=== PATIENT | female | born 1985 | race Caucasian/White ===

== ENCOUNTER 2017-08-05 03:03 | Observation (INO) | payer OTHER ==
[2017-08-05] VITALS (7 sets, daily range): BP systolic 107–150; BP diastolic 65–87; PULSE 60–85; RESP 16–20; TEMP 97.5–99.1; O2SAT 97–100
[~2017-08-05] VITALS: Ht 147.3 cm; Wt 52.0 kg
[~2017-08-05 03:03] MED LIST: GAVICHW PO; PERC7.5T13 PO; Z.0.BCPILL PO
[2017-08-05] MEDS ORDERED: TRI-TAB (05:37)
[2017-08-05] MEDS ORDERED: SODIUM CHLOR 0.9% 1000 ML INJ 1,000 ML IV SCH (05:42)
[2017-08-05] MEDS ORDERED: MORPHINE SULFATE 4 MG/ML INJ IV PUSH ONE (05:45)
[2017-08-05] MEDS ORDERED: ONDANSETRON HCL 4 MG/2 ML VIAL IVP ONE (05:45)
[2017-08-05] MEDS ORDERED: SODIUM CHLORIDE 0.9% FLUSH 10 ML FLUSH IV FLUSH PRN ×2 (05:45→06:45)
[2017-08-05 06:02] LABS: BASOPHIL # 0.2 TH/MM3 (0-0.2); EOSINOPHIL # 0.1 TH/MM3 (0-0.4); EOSINOPHIL % 0.4 % (0.0-4.0); HEMATOCRIT 40.1 % (35.0-46.0); HEMOGLOBIN 13.2 GM/DL (11.6-15.3); LYMPH % 13.3 % (9.0-44.0); LYMPHOCYTE # 2.1 TH/MM3 (1.0-4.8); MEAN CELL VOLUME 83.8 FL (80.0-100.0); MEAN CORPUSCULAR HEMOGLOBIN 27.7 PG (27.0-34.0); MEAN CORPUSCULAR HGB CONC 33.1 % (32.0-36.0); MEAN PLATELET VOLUME 9.2 FL (7.0-11.0); MONO % 3.1 % (0.0-8.0); MONOCYTE # 0.5 TH/MM3 (0-0.9); NEUT % 82.2 % (16.0-70.0); PLATELET COUNT 260 TH/MM3 (150-450); RED BLOOD COUNT 4.78 MIL/MM3 (4.00-5.30); RED CELL DISTRIBUTION WIDTH 13.1 % (11.6-17.2); WHITE BLOOD COUNT 15.8 TH/MM3 (4.0-11.0)
--- NOTE | 2017-08-05 06:05 | PD ---
HPI . Abdominal pain Chief Complaint: Abdominal Pain Time Seen by Provider: 05:36 Travel History International Travel<30 days: No Contact w/Intl Traveler<30days: No Traveled to known affect area: No History of Present Illness HPI 31-year-old female history of gallstones and prior biliary colic diagnosed via ultrasound, presents with having worsening of right upper quadrant pain Which spread to epigastric area currently, he noted as sharp pain that is unremitting and nonradiating. Patient has associated nausea no vomiting. Patient has poor tolerance of p.o. denies any fever chills sweats PFSH Past Medical History Narrative Medical Past medical history reviewed. See HPI Gastrointestinal Disorders: Yes (gallstones) Genitourinary: Yes Tetanus Vaccination: Unknown Influenza Vaccination: No ?: Unknown LMP: 07/28/2017 : 3 Para: 2 : 1 Past Surgical History Section: Yes Social History Alcohol Use: No Tobacco Use: No Allergies-Medications (Allergen,Severity, Reaction): Coded Allergies: erythromycin base (Unverified Allergy, Mild, 08/05/17) Reported Meds & Prescriptions Reported Meds & Active Scripts Active Reported Tri-Sprintec (Norgestimate-Ethinyl Estradiol) 0.18/0.215/0.25 Mg-35 Mcg Tab Narrative Medication Allergies and medications reviewed Review of Systems Except as stated in HPI: all other systems reviewed are Neg General / Constitutional: No: Fever Eyes: No: Visual changes HENT: No: Headaches Cardiovascular: No: Chest Pain or Discomfort Respiratory: No: Shortness of Breath Gastrointestinal: Positive: Nausea, Abdominal Pain, Loss of Appetite, No: Vomiting, Hematemesis, Hematochezia, Constipation, Dysphagia Genitourinary: No: Urgency, Frequency, Dysuria, Hematuria Musculoskeletal: No: Pain Skin: No Rash Neurologic: No: Weakness Psychiatric: No: Depression Endocrine: No: Polydipsia Hematologic/Lymphatic: No: Easy Bruising Physical Exam Narrative GENERAL: Awake and alert oriented 3 no acute distress. Vital signs afebrile normal and stable SKIN: Warm and dry. Color is slightly sallow, no diaphoresis cyanosis or pallor HEAD: Atraumatic. Normocephalic. EYES: Pupils equal and round. No scleral icterus. No injection or drainage. ENT: No nasal bleeding or discharge. Mucous membranes pink and moist. NECK: Trachea midline. No JVD. Supple full range of CARDIOVASCULAR: Regular rate and rhythm. S1-S2 no murmurs RESPIRATORY: No accessory muscle use. Clear to auscultation. Breath sounds equal bilaterally. GASTROINTESTINAL: Abdomen soft, tender epigastrium and right upper quadrant, equivocal to positive Quach sign., nondistended. Hepatic and splenic margins not palpable. MUSCULOSKELETAL: Extremities without clubbing, cyanosis, or edema. No obvious deformities. NEUROLOGICAL: Awake and alert. No obvious cranial nerve deficits. Motor grossly within normal limits. Five out of 5 muscle strength in the arms and legs. Normal speech. PSYCHIATRIC: Appropriate mood and affect; insight and judgment normal. Data Data Last Documented VS Vital Signs Date Time Temp Pulse Resp B/P (MAP) Pulse Ox O2 Delivery O2 Flow Rate FiO2 08/05/17 05:37 98.3 68 18 150/87 (108) 100 Room Air Orders Orders Complete Blood Count With Diff (08/05/17 05:42) Comprehensive Metabolic Panel (08/05/17 05:42) Lipase (08/05/17 05:42) Urinalysis - C+S If Indicated (08/05/17 05:42) Ct Abd/Pel W/O Iv Contrast (08/05/17 05:42) Iv Access Insert/Monitor (08/05/17 05:42) Ecg Monitoring (08/05/17 05:42) Oximetry (08/05/17 05:42) Morphine Inj (Morphine Inj) (08/05/17 05:45) Ondansetron Inj (Zofran Inj) (08/05/17 05:45) Sodium Chlor 0.9% 1000 Ml Inj (Ns 1000 M (08/05/17 05:42) Sodium Chloride 0.9% Flush (Ns Flush) (08/05/17 05:45) Ed Urine Pregnancytest Poc (08/05/17 05:42) Piperacil-Tazo 3.375 Gm Premix (Zosyn 3. (08/05/17 06:15) Us Abdomen Gallbladder (08/05/17 ) Admit Order (Ed Use Only) (08/05/17 06:48) Place In Observation (08/05/17 ) Vital Signs (Adult) Q4H (08/05/17 06:45) Activity Oob With Assistance (08/05/17 06:45) Intake + Output [place].QSHIFT (08/05/17 06:45) Diet Npo (08/05/17 Breakfast) Sodium Chlor 0.9% 1000 Ml Inj (Ns 1000 M (08/05/17 06:45) Sodium Chloride 0.9% Flush (Ns Flush) (08/05/17 06:45) Sodium Chloride 0.9% Flush (Ns Flush) (08/05/17 09:00) Ondansetron Inj (Zofran Inj) (08/05/17 12:00) Comprehensive Metabolic Panel (08/06/17 06:00) Complete Blood Count With Diff (08/06/17 06:00) Naloxone Inj (Narcan Inj) (08/05/17 06:45) Piperacil-Tazo 3.375 Gm Premix (Zosyn 3. (08/05/17 13:00) Morphine Inj (Morphine Inj) (08/05/17 09:00) Labs Laboratory Tests Test 08/05/17 05:50 White Blood Count 15.8 TH/MM3 Red Blood Count 4.78 MIL/MM3 Hemoglobin 13.2 GM/DL Hematocrit 40.1 % Mean Corpuscular Volume 83.8 FL Mean Corpuscular Hemoglobin 27.7 PG Mean Corpuscular Hemoglobin Concent 33.1 % Red Cell Distribution Width 13.1 % Platelet Count 260 TH/MM3 Mean Platelet Volume 9.2 FL Neutrophils (%) (Auto) 82.2 % Lymphocytes (%) (Auto) 13.3 % Monocytes (%) (Auto) 3.1 % Eosinophils (%) (Auto) 0.4 % Basophils (%) (Auto) 1.0 % Neutrophils # (Auto) 13.0 TH/MM3 Lymphocytes # (Auto) 2.1 TH/MM3 Monocytes # (Auto) 0.5 TH/MM3 Eosinophils # (Auto) 0.1 TH/MM3 Basophils # (Auto) 0.2 TH/MM3 CBC Comment DIFF FINAL Differential Comment Urine Color YELLOW Urine Turbidity CLEAR Urine pH 7.5 Urine Specific [place] 1.023 Urine Protein TRACE mg/dL Urine Glucose (UA) NEG mg/dL Urine Ketones NEG mg/dL Urine Occult Blood NEG Urine Nitrite NEG Urine Bilirubin NEG Urine Urobilinogen LESS THAN 2.0 MG/DL Urine Leukocyte Esterase NEG Urine WBC 2 /hpf Urine Squamous Epithelial Cells <1 /hpf Urine Bacteria RARE /hpf Urine Mucus FEW /lpf Microscopic Urinalysis Comment CULT NOT INDICATED Blood Urea Nitrogen 8 MG/DL Creatinine 0.75 MG/DL Random Glucose 99 MG/DL Total Protein 8.8 GM/DL Albumin 3.9 GM/DL Calcium Level 9.4 MG/DL Alkaline Phosphatase 172 U/L Aspartate Amino Transf (AST/SGOT) 23 U/L Alanine Aminotransferase (ALT/SGPT) 34 U/L Total Bilirubin 0.2 MG/DL Sodium Level 139 MEQ/L Potassium Level 3.7 MEQ/L Chloride Level 103 MEQ/L Carbon Dioxide Level 27.9 MEQ/L Anion Gap 8 MEQ/L Estimat Glomerular Filtration Rate 90 ML/MIN Lipase 127 U/L MDM Medical Decision Making Medical Screen Exam Complete: Yes Emergency Medical Condition: Yes Medical Record Reviewed: Yes Differential Diagnosis Biliary colic, cholecystitis, choledocholithiasis, gastritis, duodenitis Narrative Course Patient has elevated white blood cell count. CT reveals thickened wall gallbladder with pericholecystic fluid consistent with possible cholecystitis. Ultrasound ordered for evaluation of common bile duct. Patient admitted to medicine service with pain medications and broad-spectrum antibiotics administered. Diagnosis Primary Impression: Acute cholecystitis Admitting Information Admitting Physician Requests: Admit Fidel Pastor MD Aug 05, 2017 06:05
[2017-08-05 06:07] LABS: BACTERIA, URINE RARE /hpf; BILIRUBIN, URINE NEG (NEG); BLOOD, URINE NEG (NEG); GLUCOSE,URINE NEG (NEG); KETONE, URINE NEG (NEG); MUCUS URINE FEW /lpf (OCC); NITRITE,URINE NEG (NEG); PH, URINE 7.5 (5.0-8.5); SQUAMOUS EPITHELIAL CELL URINE <1 /hpf (0-5); URINE COLOR YELLOW (YELLW/STRAW); URINE LEUKOCYTE ESTERASE NEG (NEG)
[2017-08-05] MEDS ORDERED: PIPERACIL-TAZO 3.375 GM PREMIX 50 ML IV ONE (06:15)
[2017-08-05 06:18] LABS: ALBUMIN 3.9 GM/DL (3.4-5.0); ALT (GPT) 34 U/L (10-53); AST (GOT) 23 U/L (15-37); BICARBONATE 27.9 MEQ/L (21.0-32.0); BLOOD UREA NITROGEN 8 MG/DL (7-18); CALCIUM 9.4 MG/DL (8.5-10.1); CHLORIDE 103 MEQ/L (98-107); CREATININE 0.75 MG/DL (0.50-1.00); GLOMERULAR FILTRATION RATE 90 ML/MIN (>89); GLUCOSE,RANDOM 99 MG/DL (74-106); SODIUM (NA) 139 MEQ/L (136-145)
[2017-08-05 06:21] LABS: ALKALINE PHOSPHATASE 172 U/L (45-117); TOTAL BILIRUBIN ADULT 0.2 MG/DL (0.2-1.0); TOTAL PROTEIN 8.8 GM/DL (6.4-8.2)
--- NOTE | 2017-08-05 06:38 | RADRPT ---
EXAM DATE/TIME: 08/05/2017 06:20 [facility] COMPARISON: No previous studies available for comparison. INDICATIONS : Right side abdominal pain. ORAL CONTRAST: No oral contrast ingested. RADIATION DOSE: 7.24 CTDIvol (mGy) MEDICAL HISTORY : Gallstones. SURGICAL HISTORY : section. ENCOUNTER: Initial ACUITY: 1 day PAIN SCALE: 6/10 LOCATION: Right abdomen. TECHNIQUE: Volumetric scanning of the abdomen and pelvis was performed. Using automated exposure control and ad justment of the mA and/or kV according to patient size, radiation dose was kept as low as reasonably achievable to obtain optimal diagnostic quality images. DICOM format image data is available electro nically for review and comparison. FINDINGS: LOWER LUNGS: The visualized lower lungs are clear. LIVER: Homogeneous density without lesion. There is no dilation of the biliary tree. There are calcified ga llstones. SPLEEN: Normal size without lesion. PANCREAS: Within normal limits. KIDNEYS: Normal in size and shape. There is no mass, stone, or hydronephrosis. ADRENAL GLANDS: Within normal limits. VASCULAR: There is no aortic aneurysm. BOWEL/MESENTERY: The stomach, small bowel, and colon demonstrate no acute abnormality. There is no free intraperitone al air or fluid. Normal appendix. ABDOMINAL WALL: Within normal limits. RETROPERITONEUM: There is no lymphadenopathy. BLADDER: No wall thickening or mass. REPRODUCTIVE: Within normal limits. INGUINAL: There is no lymphadenopathy or hernia. MUSCULOSKELETAL: Within normal limits for patient age. CONCLUSION: 1. No renal calculi or hydronephrosis. 2. Normal appendix. 3. Cholelithiasis. Matthew Daniels MD on August 05, 2017 at 6:34 Board Certified Radiologist. This report was verified electronically.
[2017-08-05] MEDS ORDERED: NALOXONE HCL 0.4 MG/ML AMP IV PUSH PRN ×2 (06:45→11:30)
[2017-08-05] MEDS: SODIUM CHLOR 0.9% 1000 ML INJ 1,000 ML IV SCH ×2 (07:17→20:41)
--- NOTE | 2017-08-05 08:33 | RADRPT ---
EXAM DATE/TIME: 08/05/2017 07:39 [facility] COMPARISON: US ABDOMEN - GALLBLADDER, February 22, 2016, 8:50. INDICATIONS : Evaluate common bile duct. MEDICAL HISTORY : Gallstones. SURGICAL HISTORY : section. ENCOUNTER: Initial ACUITY: 2 days PAIN SCORE: 7/10 LOCATION: Right upper quadrant MEASUREMENTS: LIVER: 16.2 cm length COMMON DUCT: 5 mm RIGHT KIDNEY: 10.4 x 5.5 x 4.4 cm FINDINGS: LIVER: Normal echotexture without focal lesion or ductal dilatation. COMMON DUCT: No intraluminal mass or stone visualized. Stable in size. GALLBLADDER: The gallbladder contains a 14 mm calcified stone which is lodged in the neck of the gallbladder. Ther e is sludge also seen throughout the gallbladder. Gallbladder wall thickening measuring 3 mm with a t race amount of pericholecystic fluid. PANCREAS: The visualized portions are within normal limits. RIGHT KIDNEY: No evidence of hydronephrosis, stone, or mass. CONCLUSION: 1. Sludge and gallstone lodged within the neck of the gallbladder with sonographic findings suggestin g acute cholecystitis. HIDA scan could be performed to evaluate the patency of the cystic duct. 2. Common bile duct is long-term stable in size. Benoit Gilbert Jr., MD on August 05, 2017 at 8:27 Board Certified Radiologist. This report was verified electronically.
[2017-08-05] MEDS: SODIUM CHLORIDE 0.9% FLUSH 10 ML FLUSH IV FLUSH SCH ×2 (09:00→20:42)
[2017-08-05] MEDS ORDERED: MORPHINE SULFATE 2 MG/ML INJ IV PUSH PRN (09:00)
[2017-08-05] MEDS ORDERED: KETOROLAC TROMETHAMINE 30 MG/ML (IVP) VIAL IV PUSH PRN (09:45)
--- NOTE | 2017-08-05 09:47 | HHI.HP ---
[facility] Service [place] [facility] Primary Care Physician No Primary Care Physician Admission Diagnosis Acute Cholecystitis Diagnoses: (1) Cholelithiasis Diagnosis: Principal Chief Complaint: Abdominal pain Travel History International Travel<30 Days: No Contact w/Intl Traveler <30 Da: No Traveled to Known Affected Are: No History of Present Illness Patient is a 31-year-old female who presented to the emergency department with abdominal pain. Patient states that she has a history of gallstones and prior biliary colic diagnosed via ultrasound. Patient is having worsening right upper quadrant pain. Which is referring to the epigastric area. She has some sharp pain that comes and goes has had some nausea with it but no vomiting Patient has poor oral intake. Denies any urinary symptoms. Denies any fever chills or sweats We will consult gastroenterology and surgery and placed in observation Review of Systems Constitutional: COMPLAINS OF: Change in appetite, DENIES: Diaphoretic episodes , Fatigue, Fever, Weight gain, Weight loss, Chills, Dizziness, Night Sweats Endocrine: DENIES: Abnorml menstrual pattern, Heat/cold intolerance, Polydipsia , Polyuria, Polyphagia Eyes: DENIES: Blurred vision, Diplopia, Eye inflammation, Eye pain, Vision loss , Photosensitivity, Double Vision Ears, nose, mouth, throat: DENIES: Tinnitus, Hearing loss, Vertigo, Nasal discharge, Oral lesions, Throat pain, Hoarseness, Ear Pain, Running Nose, Epistaxis, Sinus Pain, Toothache, Odynophagia Respiratory: DENIES: Apneas, Cough, Snoring, Wheezing, Hemoptysis, Sputum production, Shortness of breath Cardiovascular: DENIES: Chest pain, Palpitations, Syncope, Dyspnea on Exertion , PND, Lower Extremity Edema, Orthopnea, Claudication Gastrointestinal: COMPLAINS OF: Abdominal pain, Nausea, DENIES: Black stools, Bloody stools, Constipation, Diarrhea, Vomiting, Difficulty Swallowing, Anorexia Genitourinary: DENIES: Abnormal vaginal bleeding, Dysmenorrhea, Dyspareunia Musculoskeletal: DENIES: Joint pain, Muscle aches, Stiffness, Joint Swelling, Back pain, Neck pain Integumentary: DENIES: Abnormal pigmentation, Pruritus, Rash, Nail changes, Breast masses, Breast skin changes, Nipple discharge Hematologic/lymphatic: DENIES: Bruising, Lymphadenopathy Immunologic/allergic: DENIES: Eczema, Urticaria Neurologic: DENIES: Abnormal gait, Headache, Localized weakness, Paresthesias, Seizures, Speech Problems, Tremor, Poor Balance Psychiatric: DENIES: Anxiety, Confusion, Mood changes, Depression, Hallucinations, Agitation, Suicidal Ideation, Homicidal Ideation, Delusions Except as stated in HPI: all other systems reviewed are Neg Past Family Social History Past Medical History Has had issues with gallbladder before section 2 Past Surgical History section 2 Reported Medications Reported Meds & Active Scripts Active Reported Tri-Sprintec (Norgestimate-Ethinyl Estradiol) 0.18/0.215/0.25 Mg-35 Mcg Tab Allergies: Coded Allergies: erythromycin base (Unverified Allergy, Mild, 08/05/17) Active Ordered Medications Current Medications Morphine Sulfate (Morphine Inj) 2 mg ONCE ONCE IV PUSH Last administered on at 06:03; Start 08/05/17 at 05:45; Stop 08/05/17 at 05:46; Status DC Ondansetron HCl (Zofran Inj) 4 mg ONCE ONCE IVP Last administered on at 06:02; Start 08/05/17 at 05:45; Stop 08/05/17 at 05:46; Status DC Sodium Chloride 1,000 ml @ 1,000 mls/hr Q1H IV Last administered on 08/05/17at 05:42; Start 08/05/17 at 05:42; Stop 08/05/17 at 06:41; Status DC Sodium Chloride (NS Flush) 2 ml UNSCH PRN IV FLUSH FLUSH AFTER USING IV ACCESS ; Start 08/05/17 at 05:45 Piperacillin Sod/ Tazobactam Sod 50 ml @ 100 mls/hr ONCE ONCE IV Last administered on 08/05/17at 06:41; Start 08/05/17 at 06:15; Stop 08/05/17 at 06:44 ; Status DC Sodium Chloride 1,000 ml @ 100 mls/hr Q10H IV Last administered on 08/05/17at 07:17; Start 08/05/17 at 06:45 Sodium Chloride (NS Flush) 2 ml UNSCH PRN IV FLUSH FLUSH AFTER USING IV ACCESS ; Start 08/05/17 at 06:45 Sodium Chloride (NS Flush) 2 ml BID IV FLUSH ; Start 08/05/17 at 09:00 Ondansetron HCl (Zofran Inj) 4 mg Q6H PRN IVP NAUSEA OR VOMITING; Start at 12:00 Naloxone HCl (Narcan Inj) 0.4 mg UNSCH PRN IV PUSH SEE LABEL COMMENTS; Start at 06:45 Piperacillin Sod/ Tazobactam Sod 50 ml @ 100 mls/hr Q6H IV ; Start 08/05/17 at 13:00 Morphine Sulfate (Morphine Inj) 2 mg Q3H PRN IV PUSH pain > 4; Start 08/05/17 at 09:00 Family History Father has history of heart disease. Mother has history of hypertension Social History Works at [employer] in their [employer] Denies any alcohol denies any tobacco denies any illicit Physical Exam Vital Signs Vital Signs Date Time Temp Pulse Resp B/P (MAP) Pulse Ox O2 Delivery O2 Flow Rate FiO2 08/05/17 07:17 80 16 120/69 (86) 99 Room Air 08/05/17 05:37 98.3 68 18 150/87 (108) 100 Room Air 08/05/17 03:12 98.6 85 16 107/66 (80) 100 Physical Exam GENERAL: This is a well-nourished, well-developed patient, in no apparent distress. SKIN: No rashes, ecchymoses or lesions. Cool and dry. HEAD: Atraumatic. Normocephalic. No temporal or scalp tenderness. EYES: Pupils equal round and reactive. Extraocular motions intact. No scleral icterus. No injection or drainage. ENT: Nose without bleeding, purulent drainage or septal hematoma. Throat without erythema, tonsillar hypertrophy or exudate. Uvula midline. Airway patent. NECK: Trachea midline. No JVD or lymphadenopathy. Supple, nontender, no meningeal signs. CARDIOVASCULAR: Regular rate and rhythm without murmurs, gallops, or rubs. S1- S2 no S3 or S4 RESPIRATORY: Clear to auscultation. Breath sounds equal bilaterally. No wheezes , rales, or rhonchi. GASTROINTESTINAL: Abdomen nondistended. No hepato-splenomegaly, or palpable masses. No guarding. Some tenderness in the right upper quadrant right side of the abdomen MUSCULOSKELETAL: Extremities without clubbing, cyanosis, or edema. No joint tenderness, effusion, or edema noted. No calf tenderness. Negative Homans sign bilaterally. NEUROLOGICAL: Awake and alert. Cranial nerves II through XII intact. Motor and sensory grossly within normal limits. Five out of 5 muscle strength in all muscle groups. Normal speech. Insight and judgment is good Mood and behaviors appropriate Laboratory Laboratory Tests Test 08/05/17 05:50 White Blood Count 15.8 Red Blood Count 4.78 Hemoglobin 13.2 Hematocrit 40.1 Mean Corpuscular Volume 83.8 Mean Corpuscular Hemoglobin 27.7 Mean Corpuscular Hemoglobin Concent 33.1 Red Cell Distribution Width 13.1 Platelet Count 260 Mean Platelet Volume 9.2 Neutrophils (%) (Auto) 82.2 Lymphocytes (%) (Auto) 13.3 Monocytes (%) (Auto) 3.1 Eosinophils (%) (Auto) 0.4 Basophils (%) (Auto) 1.0 Neutrophils # (Auto) 13.0 Lymphocytes # (Auto) 2.1 Monocytes # (Auto) 0.5 Eosinophils # (Auto) 0.1 Basophils # (Auto) 0.2 CBC Comment DIFF FINAL Differential Comment Urine Color YELLOW Urine Turbidity CLEAR Urine pH 7.5 Urine Specific [place] 1.023 Urine Protein TRACE Urine Glucose (UA) NEG Urine Ketones NEG Urine Occult Blood NEG Urine Nitrite NEG Urine Bilirubin NEG Urine Urobilinogen LESS THAN 2.0 Urine Leukocyte Esterase NEG Urine WBC 2 Urine Squamous Epithelial Cells <1 Urine Bacteria RARE Urine Mucus FEW Microscopic Urinalysis Comment CULT NOT INDICATED Blood Urea Nitrogen 8 Creatinine 0.75 Random Glucose 99 Total Protein 8.8 Albumin 3.9 Calcium Level 9.4 Alkaline Phosphatase 172 Aspartate Amino Transf (AST/SGOT) 23 Alanine Aminotransferase (ALT/SGPT) 34 Total Bilirubin 0.2 Sodium Level 139 Potassium Level 3.7 Chloride Level 103 Carbon Dioxide Level 27.9 Anion Gap 8 Estimat Glomerular Filtration Rate 90 Lipase 127 Result Diagram: 08/05/1750 08/05/17 0550 Imaging Last Impressions Abdomen/Pelvis CT 08/05/17 0542 Signed Impressions: Service Date/Time: Saturday, August 05, 2017 06:20 - CONCLUSION: 1. No renal calculi or hydronephrosis. 2. Normal appendix. 3. Cholelithiasis. Matthew Daniels MD Gall Bladder Ultrasound 08/05/17 0000 Signed Impressions: Service Date/Time: Saturday, August 05, 2017 07:39 - CONCLUSION: 1. Sludge and gallstone lodged within the neck of the gallbladder with sonographic findings suggesting acute cholecystitis. HIDA scan could be performed to evaluate the patency of the cystic duct. 2. Common bile duct is long-term stable in size. MD Deloris Sinha Jr. VTE Risk Assessment Caprini VTE Risk Assessment: No/Low Risk (score <= 1) Caprini Risk Assessment Model Point Value = 1 Point Value = 2 Point Value = 3 Point Value = 5 Age 41-60 Minor surgery BMI > 25 kg/m2 Swollen legs Varicose veins or History of unexplained or recurrent spontaneous Oral contraceptives or hormone replacement Sepsis (< 1 month) Serious lung disease, including pneumonia (< 1 month) Abnormal pulmonary function Acute myocardial infarction Congestive heart failure (< 1 month) History of inflammatory bowel disease Medical patient at bed rest Age 61-74 Arthroscopic surgery Major open surgery (> 45 min) Laparoscopic surgery (> 45 min) Malignancy Confined to bed (> 72 hours) Immobilizing plaster cast Central venous access Age >= 75 History of VTE Family history of VTE Factor V Leiden Prothrombin 25239H Lupus anticoagulant Anticardiolipin antibodies Elevated serum homocysteine Heparin-induced thrombocytopenia Other congenital or acquired thrombophilia Stroke (< 1 month) Elective arthroplasty Hip, pelvis, or leg fracture Acute spinal cord injury (< 1 month) Prophylaxis Regimen Total Risk Factor Score Risk Level Prophylaxis Regimen 0-1 Low Early ambulation 2 Moderate Order ONE of the following: *Sequential Compression Device (SCD) *Heparin 5000 units SQ BID 3-4 Higher Order ONE of the following medications: *Heparin 5000 units SQ TID *Enoxaparin/Lovenox 40 mg SQ daily (WT < 150 kg, CrCl > 30 mL/min) *Enoxaparin/Lovenox 30 mg SQ daily (WT < 150 kg, CrCl > 10-29 mL/min) *Enoxaparin/Lovenox 30 mg SQ BID (WT < 150 kg, CrCl > 30 mL/min) AND/OR *Sequential Compression Device (SCD) 5 or more Highest Order ONE of the following medications: *Heparin 5000 units SQ TID (Preferred with Epidurals) *Enoxaparin/Lovenox 40 mg SQ daily (WT < 150 kg, CrCl > 30 mL/min) *Enoxaparin/Lovenox 30 mg SQ daily (WT < 150 kg, CrCl > 10-29 mL/min) *Enoxaparin/Lovenox 30 mg SQ BID (WT < 150 kg, CrCl > 30 mL/min) AND *Sequential Compression Device (SCD) Assessment and Plan Assessment and Plan Abdominal pain with possible acute cholecystitis will consult surgery as well as gastroenterology We will get a HIDA scan as well as a MRCP Pain control with nonnarcotics due to need for HIDA scan Suspected cholecystitis pain control discussed with gastroenterology Leukocytosis continue on antibiotics and pain control and fluids keep n.p.o. at this time Continue on DVT prophylaxis with SCDs at this time GI prophylaxis with Pepcid Code Status full code Discussed Condition With [facility] AND RN AND PT Reza Warren DO Aug 05, 2017 09:47
--- NOTE | 2017-08-05 09:55 | PD.CONS ---
HPI History of Present Illness This is a 31 year old F with no significant PMH, states she has had issues with her gallbladder for the past year. Was previously advised to have cholecystectomy, however timing was bad so she did not have it done. Pt presented to the ER early this morning with complaints of RUQ abdominal pain radiating to her epigastric area that began suddenly at 10pm last night. Described pain as dull and achy. States pain is worse with larger meals. Associated nausea, denies emesis. Reports occasional ETOH. Denies smoking and illicit drug use. Work up so far includes Gallbladder US and CT abdomen and pelvis. HIDA scan ordered per Dr. Harris. (Steffanie Alcaraz) [facility] Past Medical History Denies Past Surgical History C- section (Steffanie Alcaraz) Coded Allergies: erythromycin base (Unverified Allergy, Mild, 08/05/17) Social History Occasional ETOH Denies smoking Denies illicit drugs (Steffanie Alcaraz) Review of Systems Gastrointestinal: COMPLAINS OF: Abdominal pain, Nausea, DENIES: Black stools, Bloody stools, Constipation, Diarrhea, Vomiting, Difficulty Swallowing, Anorexia , Odynophagia, Swelling of Abdomen, Heartburn, Hematemesis (Steffanie Alcaraz ) GI Exam Vitals I&O Vital Signs Date Time Temp Pulse Resp B/P (MAP) Pulse Ox O2 Delivery O2 Flow Rate FiO2 08/05/17 07:17 80 16 120/69 (86) 99 Room Air 08/05/17 05:37 98.3 68 18 150/87 (108) 100 Room Air 08/05/17 03:12 98.6 85 16 107/66 (80) 100 I/O 08/04/17 08/04/17 08/04/17 08/05/17 08/05/17 08/05/17 07:00 15:00 23:00 07:00 15:00 23:00 Intake Total 1100 ml Balance 1100 ml Intake IV Total 1100 ml Imaging Last Impressions Abdomen/Pelvis CT 08/05/17 0542 Signed Impressions: Service Date/Time: Saturday, August 05, 2017 06:20 - CONCLUSION: 1. No renal calculi or hydronephrosis. 2. Normal appendix. 3. Cholelithiasis. Matthew Daniels MD Gall Bladder Ultrasound 08/05/17 0000 Signed Impressions: Service Date/Time: Saturday, August 05, 2017 07:39 - CONCLUSION: 1. Sludge and gallstone lodged within the neck of the gallbladder with sonographic findings suggesting acute cholecystitis. HIDA scan could be performed to evaluate the patency of the cystic duct. 2. Common bile duct is long-term stable in size. Benoit Gilbert Jr., MD Laboratory Test 08/05/17 05:50 White Blood Count 15.8 TH/MM3 Red Blood Count 4.78 MIL/MM3 Hemoglobin 13.2 GM/DL Hematocrit 40.1 % Mean Corpuscular Volume 83.8 FL Mean Corpuscular Hemoglobin 27.7 PG Mean Corpuscular Hemoglobin Concent 33.1 % Red Cell Distribution Width 13.1 % Platelet Count 260 TH/MM3 Mean Platelet Volume 9.2 FL Neutrophils (%) (Auto) 82.2 % Lymphocytes (%) (Auto) 13.3 % Monocytes (%) (Auto) 3.1 % Eosinophils (%) (Auto) 0.4 % Basophils (%) (Auto) 1.0 % Neutrophils # (Auto) 13.0 TH/MM3 Lymphocytes # (Auto) 2.1 TH/MM3 Monocytes # (Auto) 0.5 TH/MM3 Eosinophils # (Auto) 0.1 TH/MM3 Basophils # (Auto) 0.2 TH/MM3 CBC Comment DIFF FINAL Differential Comment Urine Color YELLOW Urine Turbidity CLEAR Urine pH 7.5 Urine Specific [place] 1.023 Urine Protein TRACE mg/dL Urine Glucose (UA) NEG mg/dL Urine Ketones NEG mg/dL Urine Occult Blood NEG Urine Nitrite NEG Urine Bilirubin NEG Urine Urobilinogen LESS THAN 2.0 MG/DL Urine Leukocyte Esterase NEG Urine WBC 2 /hpf Urine Squamous Epithelial Cells <1 /hpf Urine Bacteria RARE /hpf Urine Mucus FEW /lpf Microscopic Urinalysis Comment CULT NOT INDICATED Blood Urea Nitrogen 8 MG/DL Creatinine 0.75 MG/DL Random Glucose 99 MG/DL Total Protein 8.8 GM/DL Albumin 3.9 GM/DL Calcium Level 9.4 MG/DL Alkaline Phosphatase 172 U/L Aspartate Amino Transf (AST/SGOT) 23 U/L Alanine Aminotransferase (ALT/SGPT) 34 U/L Total Bilirubin 0.2 MG/DL Sodium Level 139 MEQ/L Potassium Level 3.7 MEQ/L Chloride Level 103 MEQ/L Carbon Dioxide Level 27.9 MEQ/L Anion Gap 8 MEQ/L Estimat Glomerular Filtration Rate 90 ML/MIN Lipase 127 U/L Physical Examination HEENT: Normocephalic; atraumatic CHEST: Even/unlabored CARDIAC: RRR ABDOMEN: Soft, nondistended, (+) Quach sign;bowel sounds active EXTREMITIES: No clubbing, cyanosis, or edema. SKIN: Normal; no rash; no jaundice. MANAGER UROLOGY: No focal deficits; alert and oriented times three. (Steffanie Alcaraz) Assessment and Plan Plan Assessment: - Acute cholecystitis- US gallbladder --> Sludge and gallstone lodged within the neck of the gallbladder with sonographic findings suggesting acute cholecystitis. Common bile duct is long-term stable in size. CT abdomen and pelvis W/O IV contrast --> Cholelithiasis. No dilation of the biliary tree. (+) Quach sign. Pt complaining of RUQ/epigastric pain that began suddenly at 10pm last night. Leukocytosis AST-23 ALT-34 Alk phos-172 T bili-0.2 Occasional ETOH. Plan: HIDA scan ordered per attending GS consulted Unlikely CBD stone given normal LFTs, can do MRCP at later time if warranted Monitor LFTs Further recommendations based on findings of above and clinical course Pt has been seen and examined by myself and Dr. Cook and this note is written on his behalf (Steffanie Alcaraz) Physician Comments Patient seen and examined Agree with above Continue with current supportive care Monitor labs Further recommendations as per the general surgery service Not much to add from a GI perspective we will sign off (Michael Cook MD) Steffanie Alcaraz Aug 05, 2017 09:55 Michael Cook MD Aug 05, 2017 21:47
[2017-08-05] MEDS ORDERED: LACTULOSE SYRUP 20 GM/30 ML CUP PO PRN (11:30)
[2017-08-05] MEDS ORDERED: MAGNESIUM HYDROXIDE SUSP 30 ML CUP PO PRN (11:30)
[2017-08-05] MEDS ORDERED: SENNOSIDES 8.6 MG TAB PO PRN (11:30)
[2017-08-05] MEDS ORDERED: BISACODYL 10 MG SUPP RECTAL PRN (11:30)
[2017-08-05] MEDS ORDERED: GLYCOPYRROLATE 1 MG/5 ML SYRINGE IV PUSH ONE (12:00)
[2017-08-05] MEDS ORDERED: PROPOFOL 200 MG/20 ML AMP IV ONE (12:00)
[2017-08-05] MEDS ORDERED: KETOROLAC TROMETHAMINE 30 MG/ML (IVP) VIAL IV PUSH ONE (12:00)
[2017-08-05] MEDS ORDERED: LIDOCAINE HCL 1% PF 5 ML SYRINGE OTHER ONE (12:00)
[2017-08-05] MEDS ORDERED: ONDANSETRON HCL 4 MG/2 ML VIAL IV ONE (12:00)
[2017-08-05] MEDS ORDERED: DEXAMETHASONE SOD PHOS 4 MG/ML VIAL IV ONE (12:00)
[2017-08-05] MEDS ORDERED: NEOSTIGMINE 5 MG/5 ML SYRINGE IV PUSH ONE (12:00)
[2017-08-05] MEDS ORDERED: LACTATED RINGER'S 1000 ML INJ 1,000 ML IV ONE (12:00)
[2017-08-05] MEDS ORDERED: ROCURONIUM INJ 50 MG/5 ML SYRINGE IV PUSH ONE (12:00)
[2017-08-05] MEDS ORDERED: ONDANSETRON HCL 4 MG/2 ML VIAL IVP PRN (12:00)
--- NOTE | 2017-08-05 12:43 | RADRPT ---
EXAM DATE/TIME: 08/05/2017 10:38 This report includes an Addendum and supersedes previous reports for this exam. [facility] COMPARISON: US ABDOMEN - GALLBLADDER, August 05, 2017, 7:39. INDICATIONS : Abdominal pain with nausea. DOSE: 4.1 mCi Tc99m Mebrofenin IV MEDICAL HISTORY : Gallstones. SURGICAL HISTORY : section. ENCOUNTER: Initial ACUITY: 1 day PAIN SCALE: 8/10 LOCATION: Right upper quadrant TECHNIQUE: Following the intravenous administration of radiotracer, dynamic sequential images wer e performed with continuous acquisition. FINDINGS: HEPATIC KINETICS: There is prompt uptake of radiotracer in the liver. No focal defects are seen. There is normal rate of washout from the hepatic parenchyma. BILIARY CLEARANCE: Activity is first seen in the extrahepatic biliary system at 15 minutes. Ther e is normal excretion into the small bowel. GALLBLADDER: There is nonvisualization of the gallbladder at 90 minutes indicating cystic duct ob struction/acute cholecystitis. Common bile duct kinetics are normal and there is no evidence of bilia ry obstruction. BILIARY ENTRIC REFLUX: None observed. CONCLUSION: Non-visualization of the gallbladder at 90 minutes indicating cystic duct obstruction /acute cholecystitis. Clinical correlation is recommended Bryan Fiore MD on August 05, 2017 at 12:39 Board Certified Radiologist. This report was verified electronically. ADDENDUM: COMPARISON: CT ABDOMEN & PELVIS W/O CONTRAST, August 05, 2017, 6:20. Delayed 22 hour scanning does reveal gallbladder activity. The appearance would be consistent with po ssible chronic cholecystitis, however not acute cholecystitis. Juan De Dios MD on August 06, 2017 at 10:27 Board Certified Radiologist. This report was verified electronically.
[2017-08-05] MEDS: FAMOTIDINE 20 MG/2 ML VIAL IV PUSH SCH ×2 (12:53→21:36)
[2017-08-05] MEDS: PIPERACIL-TAZO 3.375 GM PREMIX 50 ML IV SCH ×2 (13:37→20:40)
[2017-08-05] MEDS ORDERED: BUPIVACAINE/EPINEPHRINE 0.25% 50 ML VIAL ONE (13:46)
[2017-08-05] MEDS ORDERED: MIDAZOLAM HCL 2 MG/2 ML VIAL ONE (13:52)
[2017-08-05] MEDS ORDERED: fentaNYL CITRATE 250 MCG/5 ML AMP ONE (13:52)
[2017-08-05] MEDS ORDERED: ACETAMINOPHEN 1000 MG/100 ML 100 ML IV ONE (13:52)
--- NOTE | 2017-08-05 15:36 | HHI.PR ---
Immediate Post Op Note Procedure Date: Aug 05, 2017 Pre Op Diagnosis: acute samuel with gb stones Post Op Diagnosis: same Surgeon: James Dowell MD Dairy Farmer(s): see or sheet Procedure: lap samuel Findings: very inflamed gb, stones Complications: none Specimen(s) removed: gallbladder Estimated blood loss: 5cc Anesthesia: General Patient to: PACU Patient Condition: Good James Dowell MD Aug 05, 2017 15:36
[2017-08-05] MEDS ORDERED: DO NOT ADM ANY ANTICOAGULANT DRUGS PRN (15:55)
--- NOTE | 2017-08-05 17:31 | MP ---
cc: James Dowell MD, Lars S MD DATE OF OPERATION: 08/05/2017 PREOPERATIVE DIAGNOSIS: Acute cholecystitis with cholelithiasis. POSTOPERATIVE DIAGNOSIS: Acute cholecystitis with cholelithiasis. PROCEDURE PERFORMED: Laparoscopic cholecystectomy. SURGEON: James Dowell MD NURSE REVIEWER: See OR sheet. ANESTHESIA: GETA. IV FLUIDS: See anesthesia sheet. ESTIMATED BLOOD LOSS: 5 mL. DRAINS: None. COMPLICATIONS: None. WOUND CLASSIFICATION: Contaminated. SPECIMENS: Gallbladder. INDICATIONS: The patient is a 31-year-old female who has a history of cholelithiasis. She came with acute onset of pain since 10:00 p.m., right upper quadrant, and CT and ultrasound findings of acute cholecystitis with cholelithiasis. Therefore, decision was made for operative intervention. DETAILS OF PROCEDURE: The patient was taken to the operative suite, placed in supine position. She was prepped and draped in usual sterile fashion after induction of general endotracheal anesthesia. Brief timeout done stating correct patient, procedure, and surgical site. We were all in agreement with this. Attention was directed to the umbilicus where a local anesthetic was injected. A stab che incision was made with an 11 blade. The Veress needle was placed. Intraabdominal placement confirmed with saline drop test. The abdomen insufflated to 15 mm pneumoperitoneum. The 5 mm Visiport Optiview was used to enter the abdomen safely. On cursory inspection, no evidence of injury. The patient was placed in reverse Trendelenburg, airplaned to the left and 3 other ports were placed including 12 mm epigastric, two 5 mm right subcostals. The fundus was attempted to be grasped, but it was very indurated and distended, therefore, an endo-needle was used to aspirate. Thick bile was removed, approximately 60 mL The gallbladder fundus was grasped and retracted cephalad. Infundibulum was identified, dissected out of the cystic duct and cystic artery. There were a couple of adhesions that were attached to the gallbladder that were taken down via a hook electrocautery. Gallbladder artery was dissected out with [place] and electro Bovie cautery. Two clips were placed proximal and 1 distal on both the cystic duct and cystic artery. A small clip placed on side branch going into the gallbladder. Endo Al were used to transect the cystic duct and cystic artery. Hook electrocautery was used to transect the gallbladder from the gallbladder fossa. The gallbladder was noted to be thick and edematous with a very significant indurated plane. Gallbladder was placed in the Endo Catch bag and removed through the epigastric port. Suction irrigation was used until effluent was clear and no evidence of spillage of bile. Hemostasis was obtained. Pneumoperitoneum was removed. All ports were removed. The epigastric port was closed with 0 Vicryl. The ports were closed with 4-0 Monocryl subcuticular suture. Sterile dressing was then placed. The patient tolerated the procedure well and there was no intraoperative complication. All lap and instrument counts were correct at the end of the procedure. The patient was extubated and taken stable to PACU. MD BERE Craig//veronica , 05:03 PM , 05:24 PM
[2017-08-05] MEDS: DOCUSATE SODIUM 50 MG/SENNA 8.6 MG TAB PO SCH (20:46)
[2017-08-06] MEDS: PIPERACIL-TAZO 3.375 GM PREMIX 50 ML IV SCH ×3 (00:30→13:00)
[2017-08-06] MEDS: oxyCODONE/ACETAMINOPHEN 5 MG/325 MG TAB PO PRN ×2 (00:31→08:55)
[2017-08-06] MEDS: SODIUM CHLOR 0.9% 1000 ML INJ 1,000 ML IV SCH ×2 (00:32→12:45)
[2017-08-06 08:00] VITALS: BP 102/64; PULSE 76; RESP 16; TEMP 98.8; O2SAT 97
[2017-08-06 08:32] LABS: AUTOMATED NEUTROPHIL # 7.2 TH/MM3 (1.8-7.7); BASOPHIL % 0.2 % (0.0-2.0); EOSINOPHIL % 0.1 % (0.0-4.0); HEMATOCRIT 30.5 % (35.0-46.0); HEMOGLOBIN 10.2 GM/DL (11.6-15.3); LYMPH % 15.7 % (9.0-44.0); LYMPHOCYTE # 1.5 TH/MM3 (1.0-4.8); MEAN CELL VOLUME 84.8 FL (80.0-100.0); MEAN CORPUSCULAR HEMOGLOBIN 28.5 PG (27.0-34.0); MEAN CORPUSCULAR HGB CONC 33.6 % (32.0-36.0); MEAN PLATELET VOLUME 9.5 FL (7.0-11.0); MONOCYTE # 0.6 TH/MM3 (0-0.9); PLATELET COUNT 206 TH/MM3 (150-450); RED BLOOD COUNT 3.59 MIL/MM3 (4.00-5.30); RED CELL DISTRIBUTION WIDTH 13.4 % (11.6-17.2); WHITE BLOOD COUNT 9.3 TH/MM3 (4.0-11.0)
[2017-08-06] MEDS: DOCUSATE SODIUM 50 MG/SENNA 8.6 MG TAB PO SCH (08:54)
[2017-08-06] MEDS: SODIUM CHLORIDE 0.9% FLUSH 10 ML FLUSH IV FLUSH SCH (08:55)
[2017-08-06] MEDS: FAMOTIDINE 20 MG/2 ML VIAL IV PUSH SCH (08:55)
[2017-08-06 09:09] LABS: ALBUMIN 2.5 GM/DL (3.4-5.0); ALKALINE PHOSPHATASE 112 U/L (45-117); ALT (GPT) 40 U/L (10-53); AST (GOT) 37 U/L (15-37); BICARBONATE 23.6 MEQ/L (21.0-32.0); BLOOD UREA NITROGEN 5 MG/DL (7-18); CHLORIDE 111 MEQ/L (98-107); CREATININE 0.67 MG/DL (0.50-1.00); FREE T4 1.22 NG/DL (0.76-1.46); GLOMERULAR FILTRATION RATE 102 ML/MIN (>89); GLUCOSE,RANDOM 93 MG/DL (74-106); MAGNESIUM 1.9 MG/DL (1.5-2.5); PHOSPHORUS 3.7 MG/DL (2.5-4.9); SODIUM (NA) 143 MEQ/L (136-145); TOTAL BILIRUBIN ADULT 0.4 MG/DL (0.2-1.0); TOTAL PROTEIN 5.9 GM/DL (6.4-8.2)
[2017-08-06] MEDS ORDERED: OXYC1TAB63 PO (10:41)
--- NOTE | 2017-08-06 11:07 | HHI.PR ---
Subjective Remarks Patient is a 31-year-old female who presented to the emergency department with abdominal pain. Patient states that she has a history of gallstones and prior biliary colic diagnosed via ultrasound. Patient is having worsening right upper quadrant pain. Which is referring to the epigastric area. She has some sharp pain that comes and goes has had some nausea with it but no vomiting Patient has poor oral intake. Denies any urinary symptoms. Denies any fever chills or sweats We will consult gastroenterology and surgery and placed in observation 08-06 had laparoscopic cholecystectomy yesterday If tolerates diet will discharge to home today Discussed with surgery and RN and patient Objective Vitals Vital Signs Date Time Temp Pulse Resp B/P (MAP) Pulse Ox O2 Delivery O2 Flow Rate FiO2 08/06/17 08:00 98.8 76 16 102/64 (77) 97 08/05/17 20:00 97.9 82 20 122/71 (88) 97 08/05/17 17:05 97.5 77 16 117/65 (82) 97 08/05/17 16:45 98.2 77 15 104/63 (77) 98 Room Air 08/05/17 16:30 72 12 105/61 (76) 96 Room Air 08/05/17 16:15 78 13 123/67 (85) 98 Room Air 08/05/17 16:00 91 14 123/64 (83) 100 Nasal Cannula 2 08/05/17 15:53 98.0 101 14 128/62 (84) 100 Nasal Cannula 2 08/05/17 12:39 97.7 60 18 143/70 (94) 100 I/O 08/05/17 08/05/17 08/05/17 08/06/17 08/06/17 08/06/17 07:00 15:00 23:00 07:00 15:00 23:00 Intake Total 1100 ml 1000 ml Output Total 5 ml Balance 1100 ml 995 ml Intake IV Total 1100 ml 1000 ml Output Estimated Blood Loss 5 ml Result Diagram: 08/06/17 0708/06/17 07 Other Results Laboratory Tests Test 08/06/17 04:01 08/06/17 07:01 Prothrombin Time 10.0 SEC Prothromb Time International Ratio 1.0 RATIO White Blood Count 9.3 TH/MM3 Red Blood Count 3.59 MIL/MM3 Hemoglobin 10.2 GM/DL Hematocrit 30.5 % Mean Corpuscular Volume 84.8 FL Mean Corpuscular Hemoglobin 28.5 PG Mean Corpuscular Hemoglobin Concent 33.6 % Red Cell Distribution Width 13.4 % Platelet Count 206 TH/MM3 Mean Platelet Volume 9.5 FL Neutrophils (%) (Auto) 78.0 % Lymphocytes (%) (Auto) 15.7 % Monocytes (%) (Auto) 6.0 % Eosinophils (%) (Auto) 0.1 % Basophils (%) (Auto) 0.2 % Neutrophils # (Auto) 7.2 TH/MM3 Lymphocytes # (Auto) 1.5 TH/MM3 Monocytes # (Auto) 0.6 TH/MM3 Eosinophils # (Auto) 0.0 TH/MM3 Basophils # (Auto) 0.0 TH/MM3 CBC Comment DIFF FINAL Differential Comment Blood Urea Nitrogen 5 MG/DL Creatinine 0.67 MG/DL Random Glucose 93 MG/DL Total Protein 5.9 GM/DL Albumin 2.5 GM/DL Calcium Level 8.0 MG/DL Phosphorus Level 3.7 MG/DL Magnesium Level 1.9 MG/DL Alkaline Phosphatase 112 U/L Aspartate Amino Transf (AST/SGOT) 37 U/L Alanine Aminotransferase (ALT/SGPT) 40 U/L Total Bilirubin 0.4 MG/DL Sodium Level 143 MEQ/L Potassium Level 3.6 MEQ/L Chloride Level 111 MEQ/L Carbon Dioxide Level 23.6 MEQ/L Anion Gap 8 MEQ/L Estimat Glomerular Filtration Rate 102 ML/MIN Amylase Level 51 U/L Lipase 118 U/L Free Thyroxine 1.22 NG/DL Thyroid Stimulating Hormone 3rd Gen 1.690 uIU/ML Imaging Last Impressions Abdomen/Pelvis CT 08/05/17 0542 Signed Impressions: Service Date/Time: Saturday, August 05, 2017 06:20 - CONCLUSION: 1. No renal calculi or hydronephrosis. 2. Normal appendix. 3. Cholelithiasis. Matthew Daniels MD Hepatobiliary Scan Nuclear Medicine 08/05/17 0000 Signed Impressions: Service Date/Time: Saturday, August 05, 2017 10:38 - CONCLUSION: Non-visualization of the gallbladder at 90 minutes indicating cystic duct obstruction/acute cholecystitis. Clinical correlation is recommended Bryan Fiore MD ADDENDUM: COMPARISON: CT ABDOMEN & PELVIS W/O CONTRAST, August 05, 2017, 6:20. Delayed 22 hour scanning does reveal gallbladder activity. The appearance would be consistent with possible chronic cholecystitis, however not acute cholecystitis. Juan De Dios MD Gall Bladder Ultrasound 08/05/17 0000 Signed Impressions: Service Date/Time: Saturday, August 05, 2017 07:39 - CONCLUSION: 1. Sludge and gallstone lodged within the neck of the gallbladder with sonographic findings suggesting acute cholecystitis. HIDA scan could be performed to evaluate the patency of the cystic duct. 2. Common bile duct is long-term stable in size. Benoit Gilbert Jr., MD Objective Remarks GENERAL: Alert and oriented 3 talkative and cooperative appears to be in no acute distress SKIN: Warm and dry. HEAD: Atraumatic. Normocephalic. EYES: Pupils equal and round. No scleral icterus. No injection or drainage. Extraocular muscles are intact ENT: No nasal bleeding or discharge. Mucous membranes pink and moist. Tongue is midline NECK: Trachea midline. No JVD. Neck is supple CARDIOVASCULAR: Regular rate and rhythm. S1-S2 no S3 or S4 RESPIRATORY: No accessory muscle use. Clear to auscultation. Breath sounds equal bilaterally. GASTROINTESTINAL: Abdomen soft, non-tender, nondistended. Hepatic and splenic margins not palpable. Very mild tenderness MUSCULOSKELETAL: Extremities without clubbing, cyanosis, or edema. No obvious deformities. NEUROLOGICAL: Awake and alert. No obvious cranial nerve deficits. Motor grossly within normal limits. Five out of 5 muscle strength in the arms and legs. Normal speech. PSYCHIATRIC: Appropriate mood and affect; insight and judgment normal. Procedures DATE OF OPERATION: 08/05/2017 PREOPERATIVE DIAGNOSIS: Acute cholecystitis with cholelithiasis. POSTOPERATIVE DIAGNOSIS: Acute cholecystitis with cholelithiasis. PROCEDURE PERFORMED: Laparoscopic cholecystectomy. SURGEON: James Dowell MD VICE PRESIDENT OF CONSULTING SERVICES: See OR sheet. ANESTHESIA: GETA. IV FLUIDS: See anesthesia sheet. ESTIMATED BLOOD LOSS: 5 mL. DRAINS: None. COMPLICATIONS: None. WOUND CLASSIFICATION: Contaminated. SPECIMENS: Gallbladder. INDICATIONS: The patient is a 31-year-old female who has a history of cholelithiasis. She came with acute onset of pain since 10:00 p.m., right upper quadrant, and CT and ultrasound findings of acute cholecystitis with cholelithiasis. Therefore, decision was made for operative intervention. DETAILS OF PROCEDURE: The patient was taken to the operative suite, placed in supine position. She was prepped and draped in usual sterile fashion after induction of general endotracheal anesthesia. Brief timeout done stating correct patient, procedure, and surgical site. We were all in agreement with this. Attention was directed to the umbilicus where a local anesthetic was injected. A stab che incision was made with an 11 blade. The Veress needle was placed. Intraabdominal placement confirmed with saline drop test. The abdomen insufflated to 15 mm pneumoperitoneum. The 5 mm Visiport Optiview was used to enter the abdomen safely. On cursory inspection, no evidence of injury. The patient was placed in reverse Trendelenburg, airplaned to the left and 3 other ports were placed including 12 mm epigastric, two 5 mm right subcostals. The fundus was attempted to be grasped, but it was very indurated and distended, therefore, an endo-needle was used to aspirate. Thick bile was removed, approximately 60 mL The gallbladder fundus was grasped and retracted cephalad. Infundibulum was identified, dissected out of the cystic duct and cystic artery. There were a couple of adhesions that were attached to the gallbladder that were taken down via a hook electrocautery. Gallbladder artery was dissected out with [place] and electro Bovie cautery. Two clips were placed proximal and 1 distal on both the cystic duct and cystic artery. A small clip placed on side branch going into the gallbladder. Endo Al were used to transect the cystic duct and cystic artery. Hook electrocautery was used to transect the gallbladder from the gallbladder fossa. The gallbladder was noted to be thick and edematous with a very significant indurated plane. Gallbladder was placed in the Endo Catch bag and removed through the epigastric port. Suction irrigation was used until effluent was clear and no evidence of spillage of bile. Hemostasis was obtained. Pneumoperitoneum was removed. All ports were removed. The epigastric port was closed with 0 Vicryl. The ports were closed with 4-0 Monocryl subcuticular suture. Sterile dressing was then placed. The patient tolerated the procedure well and there was no intraoperative complication. All lap and instrument counts were correct at the end of the procedure. The patient was extubated and taken stable to PACU. James Dowell MD Medications and IVs Current Medications Morphine Sulfate (Morphine Inj) 2 mg ONCE ONCE IV PUSH Last administered on at 06:03; Start 08/05/17 at 05:45; Stop 08/05/17 at 05:46; Status DC Ondansetron HCl (Zofran Inj) 4 mg ONCE ONCE IVP Last administered on at 06:02; Start 08/05/17 at 05:45; Stop 08/05/17 at 05:46; Status DC Sodium Chloride 1,000 ml @ 1,000 mls/hr Q1H IV Last administered on 08/05/17at 05:42; Start 08/05/17 at 05:42; Stop 08/05/17 at 06:41; Status DC Sodium Chloride (NS Flush) 2 ml UNSCH PRN IV FLUSH FLUSH AFTER USING IV ACCESS Last administered on 08/05/17at 12:54; Start 08/05/17 at 05:45 Piperacillin Sod/ Tazobactam Sod 50 ml @ 100 mls/hr ONCE ONCE IV Last administered on 08/05/17at 06:41; Start 08/05/17 at 06:15; Stop 08/05/17 at 06:44 ; Status DC Sodium Chloride 1,000 ml @ 100 mls/hr Q10H IV Last administered on 08/06/17at 00:32; Start 08/05/17 at 06:45 Sodium Chloride (NS Flush) 2 ml UNSCH PRN IV FLUSH FLUSH AFTER USING IV ACCESS ; Start 08/05/17 at 06:45 Sodium Chloride (NS Flush) 2 ml BID IV FLUSH Last administered on 08/06/17at 08: 55; Start 08/05/17 at 09:00 Ondansetron HCl (Zofran Inj) 4 mg Q6H PRN IVP NAUSEA OR VOMITING Last administered on 08/05/17at 12:54; Start 08/05/17 at 12:00 Naloxone HCl (Narcan Inj) 0.4 mg UNSCH PRN IV PUSH SEE LABEL COMMENTS; Start at 06:45 Piperacillin Sod/ Tazobactam Sod 50 ml @ 100 mls/hr Q6H IV Last administered on 08/06/17at 06:08; Start 08/05/17 at 13:00 Morphine Sulfate (Morphine Inj) 2 mg Q3H PRN IV PUSH pain > 4 Last administered on 08/05/17at 12:53; Start 08/05/17 at 09:00 Ketorolac Tromethamine (Toradol Inj) 30 mg Q6H PRN IV PUSH 6-10 PAIN AND NPO; Start 08/05/17 at 09:45; Stop 08/10/17 at 09:44; Status Cancel Famotidine (Pepcid Inj) 20 mg Q12HR IV PUSH Last administered on 08/06/17at 08: 55; Start 08/05/17 at 11:15; Stop 08/06/17 at 10:10; Status DC Naloxone HCl (Narcan Inj) 0.4 mg UNSCH PRN IV PUSH SEE LABEL COMMENTS; Start at 11:30; Stop 08/05/17 at 11:49; Status DC Senna/Docusate Sodium (Bere-Colace) 1 tab BID PO Last administered on at 08:54; Start 08/05/17 at 21:00 Magnesium Hydroxide (Milk Of Magnesia Liq) 30 ml Q12H PRN PO Mild constipation ; Start 08/05/17 at 11:30 Sennosides (Senokot) 17.2 mg Q12H PRN PO Moderate constipation; Start 08/05/17 at 11:30 Bisacodyl (Dulcolax Supp) 10 mg DAILY PRN RECTAL SEVERE CONSITIPATION; Start at 11:30 Lactulose (Lactulose Liq) 30 ml DAILY PRN PO SEVERE CONSITIPATION; Start at 11:30 Bupivacaine HCl/ Epinephrine Bitart (Sensorcaine-Epinephrine 0.25% Inj) 50 ml STK-MED ONCE .ROUTE Last administered on 08/05/17at 14:57; Start 08/05/17 at 13: 46; Stop 08/05/17 at 13:47; Status DC Midazolam HCl (Versed Inj) 2 mg STK-MED ONCE .ROUTE ; Start 08/05/17 at 13:52; Stop 08/05/17 at 13:53; Status DC Fentanyl Citrate (fentaNYL INJ) 250 mcg STK-MED ONCE .ROUTE ; Start 08/05/17 at 13:52; Stop 08/05/17 at 13:53; Status DC Acetaminophen 100 ml @ As Directed STK-MED ONCE IV ; Start 08/05/17 at 13:52; Stop 08/05/17 at 13:53; Status DC Oxycodone/ Acetaminophen (Percocet 5-325 Mg) 2 tab Q4H PRN PO pain scale 1-5 Last administered on 08/06/17at 08:55; Start 08/05/17 at 15:45 Fentanyl Citrate (fentaNYL INJ) 100 mcg STK-MED ONCE .ROUTE ; Start 08/05/17 at 16:01; Stop 08/05/17 at 16:02; Status DC Miscellaneous Information ALL NURSING DEPARTME... UNSCH PRN .XX SEE LABEL COMMENTS; Start 08/05/17 at 15:55; Stop 08/06/17 at 15:54 Famotidine (Pepcid) 20 mg BID PO ; Start 08/06/17 at 21:00 A/P Problem List: (1) Cholelithiasis ICD Code: K80.20 - Calculus of gallbladder without cholecystitis without obstruction Status: Acute Assessment and Plan Abdominal pain with possible acute cholecystitis will consult surgery as well as gastroenterology We will get a HIDA scan which was positive Pain control with nonnarcotics due to need for HIDA scan Suspected cholecystitis pain control discussed with gastroenterology Leukocytosis continue on antibiotics and pain control and fluids keep n.p.o. at this time Continue on DVT prophylaxis with SCDs at this time GI prophylaxis with Pepcid Status post cholecystectomy laparoscopically on August 05 If tolerates diet will be discharged home later today discussed with surgery and RN and patient Discharge Planning If tolerates a diet Reza Warren DO Aug 06, 2017 11:07
[2017-08-06] MEDS ORDERED: PERI PO (11:10)
[2017-08-06] MEDS ORDERED: ZOFR8TAB4 SL (11:12)
--- NOTE | 2017-08-06 11:13 | HHI.DS ---
Discharge Summary Admission Date Aug 05, 2017 at 06:50 Discharge Date: Aug 06, 2017 Admitting Diagnosis Acute Cholecystitis (1) Cholelithiasis ICD Code: K80.20 - Calculus of gallbladder without cholecystitis without obstruction Diagnosis: Principal Status: Acute (2) Abdominal pain ICD Code: R10.9 - Unspecified abdominal pain Diagnosis: Principal Procedures DATE OF OPERATION: 08/05/2017 PREOPERATIVE DIAGNOSIS: Acute cholecystitis with cholelithiasis. POSTOPERATIVE DIAGNOSIS: Acute cholecystitis with cholelithiasis. PROCEDURE PERFORMED: Laparoscopic cholecystectomy. SURGEON: James Dowell MD TOWER OPERATOR: See OR sheet. ANESTHESIA: GETA. IV FLUIDS: See anesthesia sheet. ESTIMATED BLOOD LOSS: 5 mL. DRAINS: None. COMPLICATIONS: None. WOUND CLASSIFICATION: Contaminated. SPECIMENS: Gallbladder. INDICATIONS: The patient is a 31-year-old female who has a history of cholelithiasis. She came with acute onset of pain since 10:00 p.m., right upper quadrant, and CT and ultrasound findings of acute cholecystitis with cholelithiasis. Therefore, decision was made for operative intervention. DETAILS OF PROCEDURE: The patient was taken to the operative suite, placed in supine position. She was prepped and draped in usual sterile fashion after induction of general endotracheal anesthesia. Brief timeout done stating correct patient, procedure, and surgical site. We were all in agreement with this. Attention was directed to the umbilicus where a local anesthetic was injected. A stab che incision was made with an 11 blade. The Veress needle was placed. Intraabdominal placement confirmed with saline drop test. The abdomen insufflated to 15 mm pneumoperitoneum. The 5 mm Visiport Optiview was used to enter the abdomen safely. On cursory inspection, no evidence of injury. The patient was placed in reverse Trendelenburg, airplaned to the left and 3 other ports were placed including 12 mm epigastric, two 5 mm right subcostals. The fundus was attempted to be grasped, but it was very indurated and distended, therefore, an endo-needle was used to aspirate. Thick bile was removed, approximately 60 mL The gallbladder fundus was grasped and retracted cephalad. Infundibulum was identified, dissected out of the cystic duct and cystic artery. There were a couple of adhesions that were attached to the gallbladder that were taken down via a hook electrocautery. Gallbladder artery was dissected out with [place] and electro Bovie cautery. Two clips were placed proximal and 1 distal on both the cystic duct and cystic artery. A small clip placed on side branch going into the gallbladder. Endo Al were used to transect the cystic duct and cystic artery. Hook electrocautery was used to transect the gallbladder from the gallbladder fossa. The gallbladder was noted to be thick and edematous with a very significant indurated plane. Gallbladder was placed in the Endo Catch bag and removed through the epigastric port. Suction irrigation was used until effluent was clear and no evidence of spillage of bile. Hemostasis was obtained. Pneumoperitoneum was removed. All ports were removed. The epigastric port was closed with 0 Vicryl. The ports were closed with 4-0 Monocryl subcuticular suture. Sterile dressing was then placed. The patient tolerated the procedure well and there was no intraoperative complication. All lap and instrument counts were correct at the end of the procedure. The patient was extubated and taken stable to PACU. James Dowell MD Brief History - From Admission Patient is a 31-year-old female who presented to the emergency department with abdominal pain. Patient states that she has a history of gallstones and prior biliary colic diagnosed via ultrasound. Patient is having worsening right upper quadrant pain. Which is referring to the epigastric area. She has some sharp pain that comes and goes has had some nausea with it but no vomiting Patient has poor oral intake. Denies any urinary symptoms. Denies any fever chills or sweats We will consult gastroenterology and surgery and placed in observation CBC/BMP: 08/06/17 0701 08/06/17 0701 Significant Findings Laboratory Tests Test 08/05/17 05:50 08/06/17 04:01 08/06/17 07:01 White Blood Count 15.8 TH/MM3 (4.0-11.0) Neutrophils (%) (Auto) 82.2 % (16.0-70.0) 78.0 % (16.0-70.0) Neutrophils # (Auto) 13.0 TH/MM3 (1.8-7.7) Urine Bacteria RARE /hpf (NONE) Urine Mucus FEW /lpf (OCC) Total Protein 8.8 GM/DL (6.4-8.2) 5.9 GM/DL (6.4-8.2) Alkaline Phosphatase 172 U/L (45-117) Red Blood Count 3.59 MIL/MM3 (4.00-5.30) Hemoglobin 10.2 GM/DL (11.6-15.3) Hematocrit 30.5 % (35.0-46.0) Blood Urea Nitrogen 5 MG/DL (7-18) Albumin 2.5 GM/DL (3.4-5.0) Calcium Level 8.0 MG/DL (8.5-10.1) Chloride Level 111 MEQ/L (98-107) Imaging Last Impressions Abdomen/Pelvis CT 08/05/17 0542 Signed Impressions: Service Date/Time: Saturday, August 05, 2017 06:20 - CONCLUSION: 1. No renal calculi or hydronephrosis. 2. Normal appendix. 3. Cholelithiasis. Matthew Daniels MD Hepatobiliary Scan Nuclear Medicine 08/05/17 0000 Signed Impressions: Service Date/Time: Saturday, August 05, 2017 10:38 - CONCLUSION: Non-visualization of the gallbladder at 90 minutes indicating cystic duct obstruction/acute cholecystitis. Clinical correlation is recommended Bryan Fiore MD ADDENDUM: COMPARISON: CT ABDOMEN & PELVIS W/O CONTRAST, August 05, 2017, 6:20. Delayed 22 hour scanning does reveal gallbladder activity. The appearance would be consistent with possible chronic cholecystitis, however not acute cholecystitis. Juan De Dios MD Gall Bladder Ultrasound 08/05/17 0000 Signed Impressions: Service Date/Time: Saturday, August 05, 2017 07:39 - CONCLUSION: 1. Sludge and gallstone lodged within the neck of the gallbladder with sonographic findings suggesting acute cholecystitis. HIDA scan could be performed to evaluate the patency of the cystic duct. 2. Common bile duct is long-term stable in size. Benoit Gilbert Jr., MD PE at Discharge GENERAL: Alert and oriented 3 talkative and cooperative appears to be in no acute distress SKIN: Warm and dry. HEAD: Atraumatic. Normocephalic. EYES: Pupils equal and round. No scleral icterus. No injection or drainage. Extraocular muscles are intact ENT: No nasal bleeding or discharge. Mucous membranes pink and moist. Tongue is midline NECK: Trachea midline. No JVD. Neck is supple CARDIOVASCULAR: Regular rate and rhythm. S1-S2 no S3 or S4 RESPIRATORY: No accessory muscle use. Clear to auscultation. Breath sounds equal bilaterally. GASTROINTESTINAL: Abdomen soft, non-tender, nondistended. Hepatic and splenic margins not palpable. Very mild tenderness MUSCULOSKELETAL: Extremities without clubbing, cyanosis, or edema. No obvious deformities. NEUROLOGICAL: Awake and alert. No obvious cranial nerve deficits. Motor grossly within normal limits. Five out of 5 muscle strength in the arms and legs. Normal speech. PSYCHIATRIC: Appropriate mood and affect; insight and judgment normal. Hospital Course Patient is a 31-year-old female who presented to the emergency department with abdominal pain. Patient states that she has a history of gallstones and prior biliary colic diagnosed via ultrasound. Patient is having worsening right upper quadrant pain. Which is referring to the epigastric area. She has some sharp pain that comes and goes has had some nausea with it but no vomiting Patient has poor oral intake. Denies any urinary symptoms. Denies any fever chills or sweats We will consult gastroenterology and surgery and placed in observation 08-06 had laparoscopic cholecystectomy yesterday If tolerates diet will discharge to home today Discussed with surgery and RN and patient Pt Condition on Discharge: Good Discharge Disposition: Discharge Home Discharge Time: <= 30 minutes Discharge Instructions DIET: Follow Instructions for: Heart Healthy Diet Speech Therapy-Diet Recommends: Regular Activities you can perform: Shower Only-No Bath Other Activity Instructions: NO TUB BATHS OR SWIMMING Follow up Referrals: PCP Follow-up - 1 Week with Juan Bernabe MD Surgical - 1 Week with James Dowell MD New Medications: Ondansetron Odt (Zofran Odt) 8 Mg Tab 8 MG SL Q8HR for Nausea/Vomiting, #28 TAB 0 Refills Oxycodone HCl/Acetaminophen (Oxycodone-Acetaminophen 5-325) 5 Mg-325 Mg Tablet 1 TAB PO Q4H PRN for pain, #20 TAB Sennosides-Docusate Sodium (Gnp Senna Plus 8.6-50 mg) 8.6 Mg-50 Mg Tab 1 TAB PO BID for Constipation, #60 TAB Continued Medications: Norgestimate-Ethinyl Estradiol (Tri-Sprintec) 0.18/0.215/0.25 Mg-35 Mcg Tab Reza Warren DO Aug 06, 2017 11:13
--- NOTE | 2017-08-06 11:14 | MB ---
cc: James Dowell MD DATE: 08/05/2017 REASON FOR CONSULTATION: Abdominal pain, acute cholecystitis. HISTORY OF PRESENT ILLNESS: The patient is a 31-year-old female with a history of gallstones and abdominal pain for approximately one year. The patient presented to the emergency department with acute onset right upper quadrant abdominal pain. She states the pain started around 10 p.m. and began suddenly and also radiated to the epigastric area, worse with movement, better with lying still. She denied any fevers. She did say the pain is worse with meals. She came to the emergency department. Further evaluation including a CT scan and ultrasound showing acute cholecystitis with cholelithiasis. Therefore, surgery consulted. PAST MEDICAL HISTORY: Gallstones. PAST SURGICAL HISTORY: . ALLERGIES: ERYTHROMYCIN. SOCIAL HISTORY: Occasional ETOH. Denies smoking or IVDA. MEDICATIONS: See electronic medical record. FAMILY HISTORY: Denies diabetes or hypertension. REVIEW OF SYSTEMS: GENERAL: Denies fever or chills. HEENT: Denies eye pain, ear. NECK: Denies swelling or pain. LUNGS: Denies cough or wheeze. HEART: Denies palpitation or chest pain. ABDOMEN: Complains of abdominal pain. Denies nausea or vomiting. GENITOURINARY: Denies dysuria or hematuria. ENDOCRINE: Denies polyuria or polydipsia. INTEGUMENT: Denies masses or lesions. NEUROLOGIC: Denies numbness or tingling. PSYCHIATRIC: Denies change in mood or sensorium PHYSICAL EXAM: GENERAL: The patient is in no acute distress. VITAL SIGNS: Temperature 98.3, pulse 68, respirations 18, blood pressure is 150/87, saturation 100 percent. HEENT: Pupils equal, round, and reactive. NECK: Supple. Trachea midline. LUNGS: Clear to auscultation bilaterally expansion. HEART: S1, S2. Regular rate and rhythm. ABDOMEN: Soft, positive tenderness to palpation in the right upper quadrant. No be rebound or guarding. EXTREMITIES: Warm and well perfused. NEUROLOGIC: 5/5 motor in all extremities. GCS of 15. LABORATORY AND DIAGNOSTIC DATA: WBC 15.8, hemoglobin 13.2, hematocrit 40.1, platelets 260. Sodium 139, potassium 3.7, chloride 103, BUN 8, creatinine 0.7, AST 23, ALT 34, alkaline phosphatase is 172. Lipase is 127. IMAGING: CT reviewed by myself. CT abdomen and pelvis showing cholelithiasis, thickened gallbladder wall. Ultrasound confirming gallstones and sludge suggestive of acute cholecystitis. ASSESSMENT: The patient is a 31-year-old female who presents with acute onset of right upper quadrant abdominal pain, known history of gallstones. PLAN: I had a full clinical, radiologic and laboratory work up for this patient's above-noted issues including acute cholecystitis. At this point, the patient needs to be on IV antibiotics, NPO, pain control. We will plan for laparoscopic cholecystectomy. Discussed with the patient in detail, stated understanding, agrees and would like to proceed. MD BERE Craig/MOISES , 10:56 AM , 11:13 AM [email or web address]
[2017-08-06 12:00] VITALS: BP 108/62; PULSE 75; RESP 16; TEMP 98; O2SAT 98
--- NOTE | 2017-08-06 12:49 | HHI.PR ---
cc: James Dowell MD Subjective Subjective Notes Resting in bed No issues Pain controlled Objective Vitals/I&O Vital Signs Date Time Temp Pulse Resp B/P (MAP) Pulse Ox O2 Delivery O2 Flow Rate FiO2 08/06/17 12:00 98.0 75 16 108/62 (77) 98 08/05/17 16:45 Room Air 08/05/17 16:00 2 Labs Laboratory Tests Test 08/06/17 04:01 08/06/17 07:01 Prothrombin Time 10.0 Prothromb Time International Ratio 1.0 White Blood Count 9.3 Red Blood Count 3.59 Hemoglobin 10.2 Hematocrit 30.5 Mean Corpuscular Volume 84.8 Mean Corpuscular Hemoglobin 28.5 Mean Corpuscular Hemoglobin Concent 33.6 Red Cell Distribution Width 13.4 Platelet Count 206 Mean Platelet Volume 9.5 Neutrophils (%) (Auto) 78.0 Lymphocytes (%) (Auto) 15.7 Monocytes (%) (Auto) 6.0 Eosinophils (%) (Auto) 0.1 Basophils (%) (Auto) 0.2 Neutrophils # (Auto) 7.2 Lymphocytes # (Auto) 1.5 Monocytes # (Auto) 0.6 Eosinophils # (Auto) 0.0 Basophils # (Auto) 0.0 CBC Comment DIFF FINAL Differential Comment Blood Urea Nitrogen 5 Creatinine 0.67 Random Glucose 93 Total Protein 5.9 Albumin 2.5 Calcium Level 8.0 Phosphorus Level 3.7 Magnesium Level 1.9 Alkaline Phosphatase 112 Aspartate Amino Transf (AST/SGOT) 37 Alanine Aminotransferase (ALT/SGPT) 40 Total Bilirubin 0.4 Sodium Level 143 Potassium Level 3.6 Chloride Level 111 Carbon Dioxide Level 23.6 Anion Gap 8 Estimat Glomerular Filtration Rate 102 Amylase Level 51 Lipase 118 Free Thyroxine 1.22 Thyroid Stimulating Hormone 3rd Gen 1.690 Cardiovascular: Regular Lungs: Clear Abdomen: Other (lap sites c/d/i; umbilcus incision with minimal blood on bandage ) Extremities: No edema A/P Assessment and Plan 31 year old female POD1 lap samuel -Regular diet -Pain controlled -OOB and mobilize -Left rx for pain meds on chart -Okay to shower; avoid bathtubs and swimming pools -Avoid heavy pushing pulling or lifting -GS clear for DC -Follow up ThursdayAugust 14 Attending Statement patient seen at bedside no issue doing well d/c planningThe exam, history, and the medical decision-making described in the above note were completed with the assistance of the mid-level provider. I reviewed and agree with the findings presented. I attest that I had a face-to- face encounter with the patient on the same day, and personally performed and documented my assessment and findings in the medical record. Neena Diaz. INTEGRITY DIRECTOR/Smoke Control Supervisor INTEGRITY DIRECTOR Aug 06, 2017 12:49 James Dowell MD Aug 11, 2017 13:51
[2017-08-06 14:45] LABS: HEMOGLOBIN A1C 5.3 % (4.3-6.0)
[2017-08-06] MEDS ORDERED: FAMOTIDINE 20 MG TAB PO SCH (21:00)
== END 2017-08-06 15:47 | disposition home or self-care (01) ==
LOC: NEPE 03:03 → NEDA 06:50 → HOCB 09:50
PROVIDERS: ADMIT Hospitalist; ATTEND Hospitalist
DX: K80.12 Calculus of gallbladder with acute and chronic cholecystitis without obstruction (principal); K82.8 Other specified diseases of gallbladder; K66.8 Other specified disorders of peritoneum
CPT/HCPCS: 00790; 47562; 74176; 76705; 78226; 80053; 81001; 82150; 83036; 83690; 83735; 84100; 84439; 84443; 84703; 85025; 85610; 88304; 96361; 96365; 96366; 96375; 96376; 99285; A9537; G0378; J0131; J1100; J1885; J2250; J2270; J2405; J2543; J2710; J3010; J7030; J7120